=== PATIENT | female | born 1995 | race African-American/Black ===

== ENCOUNTER 2017-10-18 05:05 | Day surgery (SDC) | payer OTHER ==
[2017-10-10 12:41] VITALS: BMI 36.6
--- NOTE | 2017-10-18 13:48 | HP ---
Admitting History and Physical - Admission Chief Complaint: Pelvic pain / Ovarian cyst History of Present Illness: 22 yo Para 0 with right ovarian cyst is pre op for laparoscopic ovarian cystectomy. History Source: Patient Limitations to Obtaining History: No Limitations - Past Medical History ...LMP: 09/29/17 ...LMP Comment: REGULAR ...: No ...Para: 0 - Past Surgical History Past Surgical History: Yes: None - Smoking History Smoking history: Never smoked Have you smoked in the past 12 months: No - Alcohol/Substance Use Hx Alcohol Use: No History of Substance Use: reports: None - Social History History of Recent Travel: No Home Medications - Allergies Allergies/Adverse Reactions: Allergies Allergy/AdvReac Type Severity Reaction Status Date / Time No Known Drug Allergies Allergy Verified 10/18/17 10:15 - Home Medications Home Medications: Ambulatory Orders NK [No Known Home Medication] 10/10/17 Family Disease History - Family Disease History Family History: Unremarkable Review of Systems - Review of Systems Constitutional: reports: No Symptoms Eyes: reports: No Symptoms HENT: reports: No Symptoms Neck: reports: No Symptoms Cardiovascular: reports: No Symptoms Respiratory: reports: No Symptoms Gastrointestinal: reports: No Symptoms Genitourinary: reports: Pain Breasts: reports: No Symptoms Reported Musculoskeletal: reports: No Symptoms Integumentary: reports: No Symptoms Neurological: reports: No Symptoms Endocrine: reports: No Symptoms Hematology/Lymphatic: reports: No Symptoms Psychiatric: reports: No Symptoms Pain Intensity: 5 Physical Examination Vital Signs: Vital Signs Temperature 98.4 F 10/18/17 10:21 Pulse Rate 84 10/18/17 10:21 Respiratory Rate 16 10/18/17 10:21 Blood Pressure 113/67 10/18/17 10:21 O2 Sat by Pulse Oximetry (%) 100 10/18/17 10:21 Constitutional: Yes: Well Nourished Eyes: Yes: Conjunctiva Clear HENT: Yes: Atraumatic Neck: Yes: Supple Cardiovascular: Yes: Regular Rate and Rhythm Respiratory: Yes: Regular Gastrointestinal: Yes: Normal Bowel Sounds Neurological: Yes: Alert, Oriented ...Motor Strength: WNL Psychiatric: Yes: Alert, Oriented Problem List - Problems (1) Ovarian cyst, left Code(s): N83.202 - UNSPECIFIED OVARIAN CYST, LEFT SIDE Assessment/Plan Right ovarian cyst Pre op for Lap cystectomy Consent signed Anesthesia to see patient
[2017-10-18] MEDS ORDERED: ceFAZolin SODIUM 1 GM VIAL IVPB ONE (14:00)
[2017-10-18] MEDS ORDERED: SUCCINYLCHOLINE CHLORIDE 200 MG/10 ML VIAL ONE (14:18)
[2017-10-18] MEDS ORDERED: PROPOFOL 20 ML ONE (14:18)
[2017-10-18] MEDS ORDERED: ROCURONIUM BROMIDE 50 MG/5 ML VIAL ONE (14:18)
[2017-10-18] MEDS ORDERED: LIDOCAINE HCL/PF 2% SDV 5ML VIAL ONE (14:18)
[2017-10-18] MEDS ORDERED: MIDAZOLAM HCL 2 MG/2 ML SINGLE DOSE VIAL ONE (14:32)
[2017-10-18] MEDS ORDERED: fentaNYL CITRATE 250 MCG/5 ML VIAL ONE (14:59)
[2017-10-18] MEDS ORDERED: NEOSTIGMINE METHYLSULFATE 0.5 MG/ML - 10 ML MDV ONE (16:02)
[2017-10-18] MEDS ORDERED: GLYCOPYRROLATE 0.2 MG/1 ML VIAL ONE ×2 (16:02)
[2017-10-18] MEDS ORDERED: oxyCODONE HCL 5 MG TABLET PO PRN ×2 (16:20→17:16)
[2017-10-18] MEDS ORDERED: ONDANSETRON 4 MG/2 ML VIAL IVPUSH PRN (16:20)
[2017-10-18] MEDS ORDERED: PROMETHAZINE HCL 25 MG/1 ML VIAL IVPB PRN (16:20)
[2017-10-18] MEDS ORDERED: LACTATED RINGERS SOLUTION 1,000 ML IV SCH (16:30)
[2017-10-18] MEDS ORDERED: HYDROmorphone HCL CARPU-JECT 2 MG/1 ML DISP.SYRIN IVPUSH ONE (17:03)
--- NOTE | 2017-10-18 17:21 | OP ---
Operative Note - Note: Operative Date: 10/18/17 Pre-Operative Diagnosis: Right ovarian cyst Operation: Laparoscopic ovarian cystectomy attempt / Right oophorectomy Findings: Right dermoid cyst Post-Operative Diagnosis: Same as Pre-op Surgeon: Heather Walters Value Engineer: Pepper Jones Anesthesia: General Specimens Removed: Right Dermoid Estimated Blood Loss (mls): 50
[2017-10-18] MEDS ORDERED: DEXTROSE 5%-LACTATED RINGERS 1,000 ML IV SCH (17:30)
--- NOTE | 2017-10-18 17:36 | DS ---
Physical Exam-AQUATIC PERFORMER Vital Signs: Vital Signs Temperature 98.2 F 10/18/17 16:17 Pulse Rate 82 10/18/17 16:17 Respiratory Rate 19 10/18/17 16:17 Blood Pressure 113/67 10/18/17 16:17 O2 Sat by Pulse Oximetry (%) 100 10/18/17 16:17 Constitutional: Yes: Well Nourished Eyes: Yes: Conjunctiva Clear HENT: Yes: Atraumatic Neck: Yes: Supple Cardiovascular: Yes: Regular Rate and Rhythm Respiratory: Yes: Regular Gastrointestinal: Yes: Normal Bowel Sounds External Genitalia: Yes: Normal Wound/Incision: Yes: Well Approximated, Steri Strips (in place) Neurological: Yes: Alert, Oriented ...Motor Strength: WNL Psychiatric: Yes: Alert, Oriented Discharge Summary Reason For Visit: OVARIAN CYST Current Active Problems Right ovarian cyst (Acute) Procedures: Principal: Right oophorectomy / Laparoscopy attempt Hospital Course: Routine post op care Condition: Good - Instructions Diet, Activity, Other Instructions: Regular diet F/U with MD in one week Disposition: HOME - Home Medications Comprehensive Discharge Medication List: Ambulatory Orders NK [No Known Home Medication] 10/10/17
[2017-10-18] MEDS: IBUPROFEN 800 MG/8 ML IJ IVPB PRN (19:31)
--- NOTE | 2017-10-18 23:37 | PN ---
Teaching Attending Note Name of Resident: Félix Acevedo ATTENDING PHYSICIAN STATEMENT I saw and evaluated the patient. I reviewed the resident's note and discussed the case with the resident. I agree with the resident's findings and plan as documented. SUBJECTIVE: 22 yo F P0 who had presented on 10/18 for right ovarian cystectomy, POD #0. Hospitalists consulted for chest pain. Pt. states she has left sided chest pain radiating to the center of her chest, burning in nature and improved when she sits up. Denies any shortness of breath or chest tightness. No N/V/D or diaphoresis. States she had seen a secretary of police in the past for similar type of pain and was given medication for gas. Denies any fevers or chills OBJECTIVE: Physical: VS: Vital Signs Period Temp Pulse Resp BP Sys/Jenkins Pulse Ox Last 24 Hr 98.2 F-98.9 F 71-107 16-19 100-120/58-86 98-100 GEN: NAD, Resting in bed, AA0X3 HEENT: NCAT, PERRL, throat without erythema or exudates CARD: RRR S1, S2 RESP: CTAB ABD: BSx4, NTD to palpation EXT: - C/C/E EKG: NSR sinus arrythmia CXR: No acute Process - Pending final read HEART 0 ASSESSMENT AND PLAN: 22 F POD #0 R. Ovarian cystectomy, hospitalists consulted for chest pain 1.) Atypical Chest Pain - Most likely due to GERD - Protonix PO - Trop - CBC/CMP - EKG reviewed Thank You for consult
[2017-10-19 00:39] LABS: HEMATOCRIT 38.1 % (32.4-45.2); HEMOGLOBIN 12.1 GM/dL (10.7-15.3); MCH 26.3 pg (25.7-33.7); MCHC 31.9 g/dl (32.0-36.0); MEAN CELL VOLUME 82.4 fl (80-96); MEAN PLT VOLUME 8.8 fl (7.5-11.1); PLATELET COUNT 308 K/MM3 (134-434); RBC 4.62 M/mm3 (3.60-5.2); RDW 13.5 % (11.6-15.6)
--- NOTE | 2017-10-19 01:09 | CONSULT ---
Consultation: REQUESTING PROVIDER: CONSULT REQUEST: We have been asked to medically evaluate this patient for chest pain. HISTORY OF PRESENT ILLNESS: Pt is a 22 y/o F with no significant PMH who came to hospital for elective dermoid cystectomy. Pt had procedure done today; was started laporoscopic and converted to open. Pt states her CP is left sided, migrates to the center of the chest, started at 8pm, is 6/10, slightly worsened by deep breaths and pressing on chest. Pt states she had a similar pain in 2016 for which she saw a telepathist and had some workup done which included an echo. That doctor gave her "a medicine for gas." REVIEW OF SYSTEMS: CONSTITUTIONAL: Absent: fever, chills, diaphoresis, generalized weakness, malaise, loss of appetite, weight change HEENT: Absent: rhinorrhea, nasal congestion, throat pain, throat swelling, difficulty swallowing, mouth swelling, ear pain, eye pain, visual changes CARDIOVASCULAR: chest pain, Absent: syncope, palpitations, irregular heart rate, lightheadedness, peripheral edema RESPIRATORY: Absent: cough, shortness of breath, dyspnea with exertion, orthopnea, wheezing, stridor, hemoptysis GASTROINTESTINAL:abdominal pain s/p abdominal surg Absent: , abdominal distension, nausea, vomiting, diarrhea, constipation, melena , hematochezia GENITOURINARY: Absent: dysuria, frequency, urgency, hesitancy, hematuria, flank pain, genital pain MUSCULOSKELETAL: Absent: myalgia, arthralgia, joint swelling, back pain, neck pain SKIN: Absent: rash, itching, pallor HEMATOLOGIC/IMMUNOLOGIC: Absent: easy bleeding, easy bruising, lymphadenopathy, frequent infections ENDOCRINE: Absent: unexplained weight gain, unexplained weight loss, heat intolerance, cold intolerance NEUROLOGIC: Absent: headache, focal weakness or paresthesias, dizziness, unsteady gait, seizure, mental status changes, bladder or bowel incontinence PSYCHIATRIC: Absent: anxiety, depression, suicidal or homicidal ideation, hallucinations. PHYSICAL EXAMINATION Vital Signs - 24 hr 10/18/17 10/18/17 10/18/17 10:21 16:17 16:30 Temperature 98.4 F 98.2 F Pulse Rate 84 82 76 Respiratory 16 19 16 Rate Blood Pressure 113/67 113/67 120/77 O2 Sat by Pulse 100 100 100 Oximetry (%) 10/18/17 10/18/1718 16:45 17:00 17:15 Temperature Pulse Rate 71 107 H 86 Respiratory 18 18 16 Rate Blood Pressure 106/63 118/78 100/86 O2 Sat by Pulse 100 100 100 Oximetry (%) 10/18/17 10/18/17 10/18/17 17:30 17:45 18:00 Temperature 98.2 F Pulse Rate 90 90 76 Respiratory 16 16 16 Rate Blood Pressure 113/58 113/58 100/66 O2 Sat by Pulse 100 100 100 Oximetry (%) 10/18/17 10/18/17 19:23 21:00 Temperature 98.9 F 98.3 F Pulse Rate 76 71 Respiratory 16 18 Rate Blood Pressure 109/60 102/64 O2 Sat by Pulse 98 Oximetry (%) GENERAL: Awake, alert, and fully oriented, in no acute distress. HEAD: Normal with no signs of trauma. EYES: Pupils equal, round and reactive to light, extraocular movements intact, sclera anicteric, conjunctiva clear. No lid lag. EARS, NOSE, THROAT: oropharynx clear without exudates. Moist mucous membranes. NECK: Normal range of motion, supple without lymphadenopathy, JVD, or masses. LUNGS: Breath sounds equal, clear to auscultation bilaterally. No wheezes, and no crackles. No accessory muscle use. HEART: Regular rate and rhythm, normal S1 and S2 with systolic murmur, rub or gallop. ABDOMEN: Soft, tender to palpation surrounding incision site. Dressing clean dry intact, not distended, normoactive bowel sounds, no guarding, no rebound, no masses. No hepatomegaly or splenomegaly. MUSCULOSKELETAL: Normal range of motion at all joints. No bony deformities or tenderness. No CVA tenderness. UPPER EXTREMITIES: 2+ pulses, warm, well-perfused. No cyanosis. No clubbing. Cap refill <2 seconds. No peripheral edema. LOWER EXTREMITIES: 2+ pulses, warm, well-perfused. No calf tenderness. No peripheral edema. NEUROLOGICAL: Cranial nerves II-XII intact. Normal speech. Normal gait. PSYCHIATRIC: Cooperative. Good eye contact. Appropriate mood and affect. SKIN: Warm, dry, normal turgor, no rashes or lesions noted. Laboratory Results - last 24 hr 10/18/17 10/19/17 09:52 00:15 WBC 12.0 H D RBC 4.62 Hgb 12.1 Hct 38.1 MCV 82.4 MCH 26.3 MCHC 31.9 L RDW 13.5 Plt Count 308 MPV 8.8 Beta HCG, Quant < 1.0 Active Medications Generic Name Dose Route Start Last Admin Trade Name Freq PRN Reason Stop Dose Admin Lactated Ringer's 1,000 mls @ 75 mls/hr 10/18/17 16:30 Lactated Ringers Solution IV ASDIR MARTI Dextrose/Lactated Ringer's 1,000 mls @ 125 mls/hr 10/18/17 17:30 D5-Lr - IV ASDIR MARTI Ibuprofen 800 mg 10/18/17 17:16 10/18/17 19:31 Caldolor Injection - IVPB 800 mg Q8H PRN Administration FEVER Ondansetron HCl 4 mg 10/18/17 16:20 Zofran Injection IVPUSH Q6H PRN NAUSEA AND/OR VOMITING Oxycodone HCl 10 mg 10/18/17 16:20 Roxicodone - PO Q4H PRN PAIN LEVEL > 4 Oxycodone HCl 5 mg 10/18/17 17:16 Roxicodone - PO Q4H PRN PAIN LEVEL 1 - 3 Promethazine HCl 12.5 mg 10/18/17 16:20 Phenergan Injection - IVPB Q6H PRN NAUSEA-FOR RESCUE AFTER 15 MIN ASSESSMENT/PLAN: PT is a 22 y/o F who was s/p elective open dermoid cystectomy when she developed acute cp. #CP -unlikely ACS in 22 y/o otherwise healthy F -EKG unremarkable. Showed sinus arrhythmia -CXR unremarkable -CBC sig for leukocytosis likely 2/2 surgery this afternoon -CMP, Tn pending Dispo: We will continue to follow the patient. Thank you for this consultative opportunity. Visit type - Emergency Visit Emergency Visit: No - New Patient This patient is new to me today: Yes Date on this admission: 10/19/17 - Critical Care Critical Care patient: No
[2017-10-19 01:12] LABS: ALBUMIN 3.2 g/dl (3.4-5.0); ANION GAP 10 (8-16); BILIRUBIN,TOTAL 0.6 mg/dL (0.2-1.0); BLOOD UREA NITROGEN 7 mg/dL (7-18); CHLORIDE 103 mmol/L (98-107); CO2 25 mmol/L (21-32); CREATININE 0.7 mg/dL (0.55-1.02); GLUCOSE,RANDOM 120 mg/dL (74-106); MAGNESIUM 1.8 mg/dL (1.8-2.4); POTASSIUM 4.3 mmol/L (3.5-5.1); SGOT/AST 26 U/L (15-37); SGPT/ALT 19 U/L (12-78); SODIUM 138 mmol/L (136-145)
[2017-10-19 01:15] LABS: ALK PHOS 62 U/L (45-117)
[2017-10-19] MEDS ORDERED: IBUPROFEN 600 MG TABLET (FP) PO PRN (01:22)
[2017-10-19] MEDS: ACETAMINOPHEN 325 MG TABLET (FP) PO PRN ×2 (01:27→08:49)
[2017-10-19] MEDS ORDERED: PANTOPRAZOLE 20 MG TABLET (FP) PO ONE (01:35)
[2017-10-19] MEDS: IBUPROFEN 800 MG/8 ML IJ IVPB PRN (02:02)
--- NOTE | 2017-10-19 08:44 | PN ---
Physical Exam: SUBJECTIVE: Patient seen and examined by me this AM - Pt still complaining of anterior CP along L margin of sternum, which she describes as 3/10, non-radiating, sharp, worsened by palpation and deep inspiration. Pt states pain was persistent overnight, but improved moderately this AM. She also endorses intermittent chest tightness as well, as well as some subjective dyspnea, however likely secondary to splinting from surgical site tenderness. Pt similarly endorses mild fatigue and BL LE edema. Endorsing surgical site tenderness. Pt states she has no cardiac hx. Similarly symptoms in 2016, underwent cardiac work-up, all tests negative. OBJECTIVE: Vital Signs Intake & Output 10/16/17 10/17/17 10/18/17 10/19/17 23:59 23:59 23:59 23:59 Intake Total 1750 1250 Output Total 450 2000 Balance 1300 -750 Period Temp Pulse Resp BP Sys/Jenkins Pulse Ox Last 24 Hr 98.2 F-98.9 F 57-107 16-19 97-121/52-86 98-100 GENERAL: Obese young woman. awake, alert, and fully oriented, in no acute distress. HEAD: Normal with no signs of trauma. EYES: PERRL, extraocular movements intact, sclera anicteric, conjunctiva clear. No ptosis. ENT: Ears normal, nares patent, oropharynx clear without exudates, moist mucous membranes. NECK: Trachea midline, full range of motion, supple. LUNGS: Breath sounds equal, clear to auscultation bilaterally, no wheezes, no crackles, no accessory muscle use. HEART: Mild tenderness to palpation on L aspect of sternum. Regular rate and rhythm, S1, S2 without murmur, rub or gallop. ABDOMEN: Soft, nontender, nondistended, normoactive bowel sounds, no guarding, no rebound, no hepatosplenomegaly, no masses. EXTREMITIES: 2+ pulses, warm, well-perfused, trace LE edema BL. NEUROLOGICAL: Cranial nerves II through XII grossly intact. Normal speech, gait not observed. PSYCH: Normal mood, normal affect. SKIN: Warm, dry, normal turgor, no rashes or lesions noted Laboratory Results - last 24 hr CBC, BMP 10/19/17 00:15 10/19/17 00:15 10/18/17 10/19/17 10/19/17 09:52 00:15 00:15 WBC 12.0 H D RBC 4.62 Hgb 12.1 Hct 38.1 MCV 82.4 MCH 26.3 MCHC 31.9 L RDW 13.5 Plt Count 308 MPV 8.8 Sodium 138 Potassium 4.3 Chloride 103 Carbon Dioxide 25 Anion Gap 10 BUN 7 Creatinine 0.7 Creat Clearance w eGFR > 60 Random Glucose 120 H Calcium 9.0 Magnesium 1.8 Total Bilirubin 0.6 AST 26 ALT 19 Alkaline Phosphatase 62 Troponin I < 0.02 Total Protein 7.0 Albumin 3.2 L Beta HCG, Quant < 1.0 Active Medications Generic Name Dose Route Start Last Admin Trade Name Freq PRN Reason Stop Dose Admin Acetaminophen 650 mg 10/19/17 01:22 10/19/17 01:27 Tylenol - PO 650 mg Q4H PRN Administration FEVER Lactated Ringer's 1,000 mls @ 75 mls/hr 10/18/17 16:30 Lactated Ringers Solution IV ASDIR MARTI Dextrose/Lactated Ringer's 1,000 mls @ 125 mls/hr 10/18/17 17:30 D5-Lr - IV ASDIR MARTI Ibuprofen 800 mg 10/18/17 17:16 10/19/17 02:02 Caldolor Injection - IVPB 800 mg Q8H PRN Administration FEVER Ibuprofen 600 mg 10/19/17 01:22 Motrin - PO Q4H PRN FEVER Influenza Virus Vaccine Quadrival 60 mcg 10/19/17 10:00 Flulaval Quad [id number] IM 10/19/17 10:01 .ONCE ONE Ondansetron HCl 4 mg 10/18/17 16:20 Zofran Injection IVPUSH Q6H PRN NAUSEA AND/OR VOMITING Oxycodone HCl 10 mg 10/18/17 16:20 Roxicodone - PO Q4H PRN PAIN LEVEL > 4 Oxycodone HCl 5 mg 10/18/17 17:16 Roxicodone - PO Q4H PRN PAIN LEVEL 1 - 3 Promethazine HCl 12.5 mg 10/18/17 16:20 Phenergan Injection - IVPB Q6H PRN NAUSEA-FOR RESCUE AFTER 15 MIN no micro Ab CXR: No pathology CXR 10/19 - No pathology noted EKG: EKG unremarkable, NSR ASSESSMENT/PLAN: Pt 22 yo F , POD1 from elective open dermoid cystectomy, post-operative developed CP at 8PM, all test negative for cardiac pathology to date. #Chest Pain - Likely MSK vs. bloating vs. GERD - EKG normal - Trops neg x2 - No hx of cardiac dz - Elevated CK likely secondary to surgical stress - Recommend watchful monitoring as outpt; No indication for any further medical work-up or intervention at this time Dispo: Cleared for discharge home as pain likely non-cardiac. F/u as outpt if persistent. Plan discussed with attending, Dr. Michael Lemus, PGY1 Thank you for this consult! Visit type - Emergency Visit Emergency Visit: No - New Patient This patient is new to me today: Yes Date on this admission: 10/19/17 - Critical Care Critical Care patient: No
[2017-10-19 09:26] VITALS: BP 111/62; PULSE 76; TEMP 98.2
[2017-10-19] MEDS ORDERED: FLU VACC QS2017-18 36MOS UP/PF 60 MCG/0.5 ML SYRINGE IM ONE (10:00)
--- NOTE | 2017-10-19 10:30 | EKG ---
Test Reason : Blood Pressure : / mmHG Vent. Rate : 064 BPM Atrial Rate : 064 BPM P-R Int : 172 ms QRS Dur : 082 ms QT Int : 388 ms P-R-T Axes : 018 028 038 degrees QTc Int : 400 ms NORMAL SINUS RHYTHM WITH SINUS ARRHYTHMIA NORMAL ECG NO PREVIOUS ECGS AVAILABLE Confirmed by TOOTIE ISAAC, CLARENCE ([id number]) on 10/19/2017 10:30:29 AM Referred By: Heather Walters Confirmed By:CLARENCE SOMMERS MD
--- NOTE | 2017-10-19 13:41 | PN ---
Progress Note (short form) - Note Progress Note: POD #1 - s/p laparotomy/ovarian cystectomy under GA. VSS. Medical evaluation for post-op chest pain appreciated. Pt. doing well, walking about without difficulty. No apparent anesthetic complications noted. Continue current care.
--- NOTE | 2017-10-19 18:29 | PN ---
Teaching Attending Note Name of Resident: Isac Lemus ATTENDING PHYSICIAN STATEMENT I saw and evaluated the patient. I reviewed the resident's note and discussed the case with the resident. I agree with the resident's findings and plan as documented. ASSESSMENT AND PLAN: 22 yo F wtih no PMH however has hx of CP and had full cardiac workup in the past with echo and was told she had gas. pain was similar to that episode. no recurrent episodes. 1. Atypical CP- pain resolved. likely gas vs GERD. EKG normal. CE neg x2. unlikely cardiac in nature. can d/c home from medical perspective should follow up with PMD this week
--- NOTE | 2017-10-25 10:23 | PATH ---
Surgical Pathology Report Patient Name: BRITTANY MORALEZ [facility]. Rec. #: [id number] /Age/Gender: 1995 (Age: 22) / F Account: [id number] Location: [facility] SURGICAL Taken: 10/18/2017 Received: 10/19/2017 Reported: 10/25/2017 Physicians: Heather Walters M.D. Specimen(s) Received RIGHT OVARIAN DERMOID CYST Clinical History Right ovarian cyst Final Diagnosis OVARY, RIGHT, DERMOID CYST, OOPHORECTOMY: MATURE CYSTIC TERATOMA, 6 CM IN GREATEST DIMENSION (GROSS MEASUREMENT). RESIDUAL OVARIAN PARENCHYMA IDENTIFIED. Electronically Signed Catherine Mejia M.D. Gross Description Received in formalin labeled "right ovarian dermoid cyst," is a 6.0 x 6.0 x 3.8 cm intact cyst. The outer surface is eubanks and smooth. The lumen contains eubanks sebaceous material and abundant hair. There is a focal corpus luteum identified as well as a focus of adipose tissue. [employer] sections are submitted in 6 cassettes. DL/10/19/2017 saudi/10/19/2017
--- NOTE | 2017-12-06 21:39 | OP ---
DATE OF OPERATION: 10/18/2017 PREOPERATIVE DIAGNOSIS: Right ovarian cyst. POSTOPERATIVE DIAGNOSIS: Right dermoid cyst. SURGEON: Heather Walters MD CIGARETTE TESTER: Roselyn Jones MD ANESTHESIA: General. COMPLICATIONS: None. ESTIMATED BLOOD LOSS: 50 mL PROCEDURE: Laparoscopic ovarian cystectomy converted to laparotomy. DESCRIPTION OF PROCEDURE: Patient was taken to the operating room where general anesthesia was administered. Patient was then prepped and draped in the proper sterile fashion. She was placed in lithotomy position. Then, a speculum was placed in the patient's vagina, and the anterior lip of the cervix was grasped with a single-tooth tenaculum. A uterine manipulator was then advanced into the to manipulate the uterus. Then, the speculum was removed from the vagina. Attention was then turned to the patient's abdomen where a 5-mm skin incision was made in the umbilical fold. The Veress needle was introduced into the peritoneal cavity at a 45-degree angle while tenting the abdominal wall, but intraperitoneal placement using a water-filled syringe was not successful. Several attempts at placing the Veress needle into the abdomen resulted in a rise in intraabdominal pressure. The trocar and sleeve could not be advanced into the abdomen. Since pneumoperitoneum could not be obtained, the laparoscopy was aborted, and we proceeded with a laparotomy. Then, the patient was taken out of lithotomy position. A Pfannenstiel skin incision was made approximately 2 cm above the pubic symphysis and extended sharply to the rectus fascia. The fascia was then incised bilaterally using the Bovie cautery, and the muscle of the anterior abdominal wall was in the midline by sharp and blunt dissection. The peritoneum was grasped between 2 pickups, elevated, and entered sharply with the scalpel. The pelvis was examined, and a large mass was noted in the adnexa. The mass was consistent with a dermoid cyst on the right adnexa. Then, the ovarian ligament was clamped, and the dermoid was excised. Then, hemostasis was obtained using 2-0 Vicryl, and the pelvis was completely irrigated. The fascia was closed using 0 Vicryl. The skin was closed in a subcuticular fashion using 3-0 Vicryl. The patient tolerated the procedure well. The patient was taken to PACU in stable condition. PATHOLOGY: Right dermoid cyst. HEATHER WALTERS M.D. PRAVEEN/[id number]
== END 2017-10-19 14:59 | disposition home or self-care (01) ==
LOC: JASU-SURG 05:05 → J3W 18:45 → JASU-SURG 10-19 14:59
PROVIDERS: ATTEND Obstetrics & Gynecology
PROC: 0UB00ZZ Excision of Right Ovary, Open Approach (ICD-10-PCS; 2017-10-18)
PROC: 0UB04ZZ Excision of Right Ovary, Percutaneous Endoscopic Approach (ICD-10-PCS; principal; 2017-10-18 12:00)
DX: D27.0 Benign neoplasm of right ovary (principal); Z53.31 Laparoscopic surgical procedure converted to open procedure
CPT/HCPCS: 36415; 71045-TC-FY; 74018-TC-FY; 80053; 82550; 82553; 83735; 84484; 84702; 85027; 88307-TC; 90686; 93005; 93010; 94760

== ENCOUNTER 2019-04-02 21:23 | Emergency (ER) | payer OTHER ==
[2019-04-02 21:41] VITALS: BP 144/44; PULSE 87; TEMP 98.2; BMI 40.2
--- NOTE | 2019-04-02 21:43 | PDOC ---
Rapid Medical Evaluation Time Seen by Provider: 04/02/19 21:34 Medical Evaluation: Allergies Allergy/AdvReac Type Severity Reaction Status Date / Time No Known Drug Allergies Allergy Verified 04/02/19 21:31 04/02/19 21:37 Pt c/o: cp and sob x 3 weeks, began while in [place], also started with diarrhea 2 weeks ago, no fever, went to urgent care clinic and was told she had an abnormal ekg Pt on brief exam: no abd tenderness, vss, lcta, ekg rate 83 w/ early repol Pt ordered for: labs, ekg, urine Pt to proceed to the ED Discharge Disposition - Diagnosis Diarrhea Chest pain Qualifiers: Chest pain type: unspecified Qualified Code(s): R07.9 - Chest pain, unspecified - Discharge Dispostion Disposition: HOME Condition at time of disposition: Stable - Referrals Referrals: Kaushik Castaneda MD [Primary Care Provider] - Call tomorrow - Patient Instructions Printed Discharge Instructions: Diarrhea Additional Instructions: drink plenty of fluids including Gatorade. start a BRAT ( bananas, rice apples toast) follow up with your doctor as soon as possible return to the ER if symptoms worsen - Post Discharge Activity Work/School Note: Back to Work
--- NOTE | 2019-04-03 00:39 | PDOC ---
History of Present Illness - General Chief Complaint: Chest Pain Stated Complaint: SENT BY URGENT CARE Time Seen by Provider: 04/02/19 21:34 - History of Present Illness Initial Comments: 04/03/19 00:41 Patient sent from [facility] urgent care complaining of 1 month history of diarrhea, myalgia, sore throat, subjective fever, chest pain shortness of breath. Patient recent travel to [facility] out reports eating outside and drinking local water. Unsure of infection. Patient was started on amoxicillin reports no improvement in symptoms. stool culture and O&P, chest xray done in urgent care Past History - Past Medical History Allergies/Adverse Reactions: Allergies Allergy/AdvReac Type Severity Reaction Status Date / Time No Known Drug Allergies Allergy Verified 04/02/19 21:31 Home Medications: Ambulatory Orders Ibuprofen [Motrin -] 600 mg PO Q4H PRN #30 tablet 10/18/17 Anemia: No Asthma: No Cancer: No Cardiac Disorders: No CVA: No COPD: No CHF: No Dementia: No Diabetes: No GI Disorders: No Disorders: No HTN: No Hypercholesterolemia: No Liver Disease: No Seizures: No Thyroid Disease: No - Suicide/Smoking/Psychosocial Hx Smoking History: Never smoked Have you smoked in the past 12 months: No Hx Alcohol Use: No Drug/Substance Use Hx: No Substance Use Type: None Hx Substance Use Treatment: No Cardiac Specific PMH - Complaint Specific PMHX Pacemaker: No Review of Systems - Review of Systems Able to Perform ROS?: Yes Is the patient limited Green[place]ic proficient: No Constitutional: No: Symptoms Reported, See HPI, Chills, Diaphoresis, Fever, Loss of Appetite, Malaise, Night Sweats, Weakness, Weight Stable, Unintentional Wgt. Loss, Unexplained wgt Loss, Other Cardiac (ROS): Yes: Chest Pain, Lightheadedness ABD/GI: Yes: Diarrhea, Nausea, Vomiting : No: Symptoms Reported, See HPI, Burning, Dysuria, Discharge, Frequency, Flank Pain, Hematuria, Incontinence, Pain, Urgency, Testicular Mass, Testicular Swelling, Lesions, Testicular Pain, Other Musculoskeletal: No: Symptoms Reported, See HPI, Back Pain, Gout, Joint Pain, Joint Swelling, Muscle Pain, Muscle Weakness, Neck Pain, Joint Stiffness, Other *Physical Exam - Vital Signs Last Vital Signs Temp Pulse Resp BP Pulse Ox 98.2 F 87 20 144/44 L 100 04/02/19 21:31 04/02/19 21:31 04/02/19 21:31 04/02/19 21:31 04/02/19 21:31 Heart Score/ECG Review - ECG Intrepretation Rhythm: Regular Rhythm Comment:: 04/03/19 00:41 65 bpm: early repolarization ED Treatment Course - LABORATORY CBC & Chemistry Diagram: 04/03/19 01:20 04/03/19 01:20 - ADDITIONAL ORDERS Additional order review: Laboratory Results 04/03/19 04/03/19 04/03/19 01:30 01:20 01:20 D-Dimer 444 Sodium 137 Potassium 4.1 Chloride 105 Carbon Dioxide 23 Anion Gap 9 BUN 9.2 Creatinine 0.9 Est GFR (CKD-EPI)AfAm 104.45 Est GFR (CKD-EPI)NonAf 90.12 Random Glucose 102 Calcium 9.0 Magnesium 2.0 Total Bilirubin 0.4 AST 22 ALT 33 Alkaline Phosphatase 103 Creatine Kinase 259 H Creatine Kinase Index 0.4 CK-MB (CK-2) 1.2 Troponin I < 0.02 Total Protein 7.8 Albumin 3.7 Lipase 125 Urine Color Yellow Urine Appearance Clear Urine pH 6.0 Ur Specific [place] 1.007 L Urine Protein Negative Urine Glucose (UA) Negative Urine Ketones Negative Urine Blood 3+ H Urine Nitrite Negative Urine Bilirubin Negative Urine Urobilinogen 0.2 Ur Leukocyte Esterase Trace Urine WBC (Auto) 2 Urine RBC (Auto) 110 Urine Casts (Auto) 0 U Epithel Cells (Auto) 2.8 Urine Bacteria (Auto) 29.4 Urine HCG, Qual Negative 04/03/19 01:20 RBC 4.60 MCV 83.5 MCHC 31.9 L RDW 14.4 MPV 8.7 Neutrophils % 63.6 Lymphocytes % 25.4 D Monocytes % 7.4 Eosinophils % 2.7 Basophils % 0.9 - Medications Given in the ED: ED Medications Discontinued Medications Generic Name Dose Route Start Last Admin Trade Name Freq PRN Reason Stop Dose Admin Sodium Chloride 1,000 mls @ 1,000 mls/hr 04/03/19 02:39 04/03/19 03:55 Normal Saline - IV 04/03/19 03:38 1,000 mls/hr ASDIR STA Administration Famotidine/Sodium Chloride 20 mg in 50 mls @ 100 mls/hr 04/03/19 02:39 03:55 Pepcid 20 Mg Premixed Ivpb - IVPB 04/03/19 03:08 100 mls/hr ONCE ONE Administration Ondansetron HCl 4 mg 04/03/19 02:39 04/03/19 03:55 Zofran Injection IVPB 04/03/19 02:40 4 mg ONCE ONE Administration Medical Decision Making - Medical Decision Making 04/03/19 04:18 A: chest pain P: cbc cmp chest xray: WNL at urgent care prior to arrival cardiac CK slightly elevated 04/03/19 04:47 IVF, famotidine zofran 04/03/19 05:04 p[atient tolerated PO sandwich. feeling better. will d.c home to follow up with pcp *DC/Admit/Observation/Transfer Diagnosis at time of Disposition: Chest pain Qualifiers: Chest pain type: unspecified Qualified Code(s): R07.9 - Chest pain, unspecified Diarrhea Qualifiers: Diarrhea type: unspecified type Qualified Code(s): R19.7 - Diarrhea, unspecified - Discharge Dispostion Disposition: HOME - Referrals Referrals: Kaushik Castaneda MD [Primary Care Provider] - Call tomorrow - Patient Instructions Printed Discharge Instructions: Diarrhea Additional Instructions: drink plenty of fluids including Gatorade. start a BRAT ( bananas, rice apples toast) follow up with your doctor as soon as possible return to the ER if symptoms worsen - Post Discharge Activity Forms/Work/School Notes: Back to Work
[2019-04-03 01:29] LABS: BASO % 0.9 % (0-2.0); EOS % 2.7 % (0-4.5); HEMATOCRIT 38.4 % (32.4-45.2); HEMOGLOBIN 12.2 GM/dL (10.7-15.3); LYMPH % 25.4 % (8-40); MCH 26.6 pg (25.7-33.7); MCHC 31.9 g/dl (32.0-36.0); MEAN CELL VOLUME 83.5 fl (80-96); MEAN PLT VOLUME 8.7 fl (7.5-11.1); MONO % 7.4 % (3.8-10.2); NEUT % 63.6 % (42.8-82.8); PLATELET COUNT 288 K/MM3 (134-434); RDW 14.4 % (11.6-15.6); WHITE BLOOD COUNT 5.8 K/mm3 (4.0-10.0)
[2019-04-03 01:45] LABS: HCG,QUALITATIVE URINE Negative
[2019-04-03 01:46] LABS: EPI CELLS 2.8 /HPF (0-5/HPF); HYALINE CASTS 0 /lpf (0-8); URINE APPEARANCE CLEAR; URINE BACTERIA 29.4 /hpf (NEGATIVE); URINE BILIRUBIN NEGATIVE (NEGATIVE); URINE COLOR YELLOW; URINE GLUCOSE (UA) NEGATIVE (NEGATIVE); URINE KETONE NEGATIVE (NEGATIVE); URINE LEUK ESTERASE TRACE (NEGATIVE); URINE NITRITE NEGATIVE (NEGATIVE); URINE PROTEIN NEGATIVE (NEGATIVE); URINE RBC 110 /hpf (0-4); URINE UROBILINOGEN 0.2 mg/dL (0.2-1.0); URINE WBC 2 /hpf (0-5)
[2019-04-03 01:59] LABS: ALBUMIN 3.7 g/dl (3.4-5.0); ALK PHOS 103 U/L (45-117); ANION GAP 9 MMOL/L (8-16); BILIRUBIN,TOTAL 0.4 mg/dL (0.2-1); BLOOD UREA NITROGEN 9.2 mg/dL (7-18); CHLORIDE 105 mmol/L (98-107); CO2 23 mmol/L (21-32); CREATININE 0.9 mg/dL (0.55-1.3); GLUCOSE,RANDOM 102 mg/dL (74-106); LIPASE 125 U/L (73-393); POTASSIUM 4.1 mmol/L (3.5-5.1); SGOT/AST 22 U/L (15-37); SGPT/ALT 33 U/L (13-61); SODIUM 137 mmol/L (136-145); TOT PROT 7.8 g/dl (6.4-8.2)
[2019-04-03] MEDS ORDERED: FAMOTIDINE 20 MG/50 ML IVPB 20 MG/50 ML MG IVPB ONE ×2 (02:39→03:57)
[2019-04-03] MEDS ORDERED: SODIUM CHLORIDE 1,000 ML IV STA (02:39)
[2019-04-03] MEDS ORDERED: ONDANSETRON 4 MG/2 ML VIAL IVPB ONE (02:39)
[2019-04-03] MEDS ORDERED: ONDANSETRON 4 MG/2 ML VIAL ONE (03:57)
--- NOTE | 2019-04-03 08:31 | EKG ---
Test Reason : Blood Pressure : / mmHG Vent. Rate : 083 BPM Atrial Rate : 083 BPM P-R Int : 166 ms QRS Dur : 082 ms QT Int : 358 ms P-R-T Axes : 017 053 054 degrees QTc Int : 420 ms NORMAL SINUS RHYTHM ST ELEVATION, CONSIDER EARLY REPOLARIZATION BORDERLINE ECG WHEN COMPARED WITH ECG OF 17-JAN-2018 15:58, NO SIGNIFICANT CHANGE WAS FOUND Confirmed by FELICIANO ISAAC, MARYLOU ([id number]) on 04/03/2019 8:30:46 AM Referred By: Confirmed By:MARYLOU WIGGINS MD
== END 2019-04-03 05:20 | disposition home or self-care (01) ==
LOC: JER 21:23
PROC: 3E033GC Introduction of Other Therapeutic Substance into Peripheral Vein, Percutaneous Approach (ICD-10-PCS; principal; 2019-04-02)
PROC: 3E033GC Introduction of Other Therapeutic Substance into Peripheral Vein, Percutaneous Approach (ICD-10-PCS; 2019-04-02)
PROC: 3E0337Z Introduction of Electrolytic and Water Balance Substance into Peripheral Vein, Percutaneous Approach (ICD-10-PCS; 2019-04-02)
DX: R19.7 Diarrhea, unspecified (principal); R07.9 Chest pain, unspecified
CPT/HCPCS: 36415; 80053; 81003; 82550; 82553; 83690; 83735; 84484; 84703; 85025; 85379; 93005; 93010; 99281-25; J7030

== ENCOUNTER 2019-04-10 22:17 | Emergency (ER) | payer OTHER ==
[2019-04-10 22:28] VITALS: BP 111/57; PULSE 104; TEMP 98.8; BMI 40.2
--- NOTE | 2019-04-10 23:37 | PDOC ---
History of Present Illness - General Chief Complaint: Cold Symptoms Stated Complaint: SOB & CHEST PAIN Time Seen by Provider: 04/10/19 22:46 - History of Present Illness Initial Comments: 04/10/19 23:37 CHIEF COMPLAINT: multiple complaint HISTORY OF PRESENT ILLNESS: 23 yo F with hx of bipolar disorder presents to ED with c/o chest pain, diarrhea, sob, and concerns for sinus infection and ear infection. Patient reports she's always had sinus infections, but she had "all these symptoms that began in [place]." She states she was seen by multiple urgent care facilities that did all this blood work and EKGs, and they told me to come to this ER the other day because of an abnormal EKG, but I'm still having shortness of breath, and chest pain, and I think i'm having an ear infection because I took out my earring and it smelled like ." Patient states she gets lots of anxiety about her health and that she has been feeling "tight around my throat when I breathe, especially when i'm concerned about my health." 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 No recent travel or sick contacts. PAST MEDICAL HISTORY: Denies past medical history FAMILY HISTORY: Denies SOCIAL HISTORY: Denies tobacco, alcohol, illicit drug use. SURGICAL HISTORY: Denies ALLERGIES: No known drug allergies REVIEW OF SYSTEMS General/Constitutional: Denies fever or chills. Denies weakness, weight change. HEENT: Denies change in vision. Denies ear pain or discharge. Denies sore throat. Cardiovascular: chest pain, SOB, "since I got back from [place] a couple of weeks ago." Respiratory: "I feel like I still have a sinus infection." Denies cough, wheezing, or hemoptysis. Gastrointestinal: Denies nausea, vomiting, diarrhea or constipation. Denies rectal bleeding. Genitourinary: Denies dysuria, frequency, or change in urination. Musculoskeletal: Denies joint or muscle swelling or pain. Denies neck or back pain. Skin and breasts: Denies rash or easy bruising. Neurologic: Denies headache, vertigo, loss of consciousness, or loss of sensation. PHYSICAL EXAM General Appearance: Well-appearing, appropriately dressed. No apparent distress , no intoxication. HEENT: EOMI, PERRLA, normal ENT inspection, normal voice, TMs normal, pharynx normal. No conjunctival pallor. No photophobia, scleral icterus. Neck: Supple. Trachea midline. No tenderness, rigidity, carotid bruit, stridor , lymphadenopathy, or thyromegaly. Respiratory/Chest: Lungs CTAB. No shortness of breath, chest tenderness, respiratory distress, accessory muscle use. No crackles, rales, rhonchi, stridor , wheezing, dullness Cardiovascular: RRR. S1, S2. No JVD, murmur, bradycardia, tachycardia. Vascular Pulses: Dorsalis-Pedis (R): 2+, Dorsalis-Pedis (L): 2+ Gastrointestinal/Abdominal: Normal bowel sounds. Abdomen soft, non-distended. No tenderness or rebound tenderness. No organomegaly, pulsatile mass, guarding , hernia, hepatomegaly, splenomegaly. Lymphatic: No adenopathy, tenderness. Musculoskeletal/Extremities: Normal inspection. FROM of all extremities, normal capillary refill. Pelvis Stable. No CVA tenderness. No tenderness to extremities, pedal edema, swelling, erythema or deformity. Integumentary: Appropriate color, dry, warm. 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 Fully oriented, alert. Appropriate mood/affect. Motor strength 5/5. No appreciable EOM palsy, facial droop or sensory deficit. Psych: Patient is anxious appearing, tangential speech. Past History - Past Medical History Allergies/Adverse Reactions: Allergies Allergy/AdvReac Type Severity Reaction Status Date / Time No Known Drug Allergies Allergy Verified 04/10/19 22:28 Home Medications: Ambulatory Orders Ibuprofen [Motrin -] 600 mg PO Q4H PRN #30 tablet 10/18/17 Hydroxyzine HCl 25 mg PO QID PRN #20 tablet 04/10/19 Anemia: No Asthma: No Cancer: No Cardiac Disorders: No CVA: No COPD: No CHF: No Dementia: No Diabetes: No GI Disorders: No Disorders: No HTN: No Hypercholesterolemia: No Liver Disease: No Psychiatric Problems: Yes (ANXIETY AND DEPRESSION) Seizures: No Thyroid Disease: No - Suicide/Smoking/Psychosocial Hx Smoking History: Never smoked Have you smoked in the past 12 months: No Hx Alcohol Use: No Drug/Substance Use Hx: No Substance Use Type: None Hx Substance Use Treatment: No *Physical Exam - Vital Signs Last Vital Signs Temp Pulse Resp BP Pulse Ox 98.8 F 104 H 18 111/57 L 98 04/10/19 22:24 04/10/19 22:24 04/10/19 22:24 04/10/19 22:24 04/10/19 22:24 Medical Decision Making - Medical Decision Making 04/11/19 00:31 23 yo F with hx of bipolar disorder presents to ED with c/o chest pain, diarrhea , sob, and concerns for sinus infection and ear infection. Physical exam grossly unremarkable, psych exam + for anxiety and likely manic episode. Discussed with patient that symptoms of chest tightness and SOB are more likely secondary to her anxiety surrounding her health as her physical exam is unremarkable. Patient states "ok, yea, that's fair." Patient states she is taking Seroquel and does not want to try any more psych meds at this time without consulting her psychiatrist. Discussed with patient option to trial hydroxyzine for her anxiety, patient verbalized understanding and agrees to plan. Advised patient to take medication as prescribed. Patient states she has appt with psych this week. Advised patient of signs and symptoms for return to ED. Patient verbalized understanding and agrees to plan. *DC/Admit/Observation/Transfer Diagnosis at time of Disposition: Anxiety - Discharge Dispostion Disposition: HOME Condition at time of disposition: Stable - Prescriptions Prescriptions: Hydroxyzine HCl 25 mg PO QID PRN #20 tablet PRN Reason: Anxiety - Referrals Referrals: Kaushik Castaneda MD [Primary Care Provider] - - Patient Instructions Printed Discharge Instructions: Generalized Anxiety Disorder Additional Instructions: Please take medication as prescribed. Follow up with your primary care doctor if your symptoms persist past 5 days. If you develop any new or worsening symptoms, please return to the ER. - Post Discharge Activity
[2019-04-10] MEDS ORDERED: hydrOXYzine HCL 25 MG TABLET (FP) PO ONE (23:38)
== END 2019-04-11 01:17 | disposition home or self-care (01) ==
LOC: JER 22:17
DX: F41.9 Anxiety disorder, unspecified (principal)
CPT/HCPCS: 99281-25

== ENCOUNTER 2022-08-17 15:17 | Emergency (ER) | payer OTHER ==
[2022-08-17 15:34] VITALS: BP 108/66; PULSE 95; RESP 20; TEMP 97.9; BMI 51.5
[2022-08-17] MEDS ORDERED: LIDOCAINE 5% TOPICAL PATCH TP ONE (16:10)
[2022-08-17] MEDS ORDERED: LIDOCAINE 5% TOPICAL PATCH ONE (16:23)
[2022-08-17] MEDS ORDERED: LIDOCAINE PATCH REMOVAL MC SCH (22:00)
== END 2022-08-17 16:54 | disposition home or self-care (01) ==
LOC: JER 15:17 → JERFT 15:17
DX: M54.50 Low back pain, unspecified (principal); V89.2XXA Person injured in unspecified motor-vehicle accident, traffic, initial encounter
CPT/HCPCS: 0241U-QW; 99283-25